=== PATIENT | male | born 1995 | race Caucasian/White ===

== ENCOUNTER 2022-12-14 22:52 | Emergency (ER) | payer OTHER ==
[2022-12-14 23:13] VITALS: BP 142/83
--- NOTE | 2022-12-14 23:40 | ED Physician Documentation ---
History of Present Illness - Stated complaint Stated Complaint: MALE - Chief complaint Chief Complaint: General - History obtained from History obtained from: Patient - Additonal information Additional information: 27yM , previously healthy, p/w R testicular pain sudden onset around 7 or 8pm this evening. He googled his symptoms and became concerned he had testicular torsion. patient states he may have squeezed the testicle and "cannot get an erection". No urinary sx. denies penile discharge, rash, or prior history of injury, infection or other medical issues with the genitals. Review of Systems : reports: Testicular pain. denies: Dysuria, Hematuria PD PAST MEDICAL HISTORY - Present Medications Home Medications: Ambulatory Orders Medication Instructions Recorded Confirmed No Known Home Medications 12/14/22 12/14/22 - Allergies Allergies/Adverse Reactions: Allergies Allergy/AdvReac Type Severity Reaction Status Date / Time No Known Drug Allergies Allergy Verified 12/14/22 23:02 PD ED PE NORMAL - Vitals Vital signs reviewed: Yes - General General: Alert and oriented X 3, No acute distress, Well developed/nourished - Male Male : Form Drafter present (AIRAM Mcelroy), Other (BL testicles with normal lie and BL cremaster reflex intact. mild discomfort on examination of R testicle. L testicle nontender. External genitalia otherwise normal.) - Derm Derm: Normal color, Warm and dry Results - Vitals Vitals: Vital Signs - 24 hr 12/14/22 12/14/22 22:55 22:59 Temperature 37.1 C Heart Rate 68 68 Respiratory 14 14 Rate Blood Pressure 142/83 H 142/83 H O2 Saturation 97 97 Oxygen O2 Source Room air PD Medical Decision Making - ED course ED course: 27yM presents for testicular evaluation after experiencing sudden onset R testicle pain this evening. BL cremaster intact. normal testicular lie without evidence of discoloration or swelling. plan for testicular ultrasound and discharge pending results. patient declining pain medication.
--- NOTE | 2022-12-15 01:04 | Ultrasound Report ---
PROCEDURE: Testicle w/Doppler INDICATIONS: R testicle pain sudden around 8pm TECHNIQUE: Real-time scanning was performed of the scrotum and testicles, with image documentation. Color and p ulse Doppler interrogation was performed of both testicles. COMPARISON: None. FINDINGS: Right: Testicle measures 4.8 x 2.6 x 2.4 cm and appears mildly heterogeneous in echotexture. Epidid ymis is normal in overall size and morphology. No varicoceles. There is a minimal hydrocele. Overlyi ng scrotal skin is normal in thickness. Left: Testicle measures 4.9 x 2.1 x 3 cm and appears mildly heterogeneous in echotexture. Epididymi s is normal in overall size and morphology. There is a small epididymal head cyst or spermatocele me asuring up to 0.7 cm. No hydrocele or varicoceles. Overlying scrotal skin is normal in thickness. IMPRESSION: 1. No definite evidence of testicular torsion. 2. Small epididymal head cyst or spermatocele. Reviewed by: Damir Howard MD on 12/15/2022 1:13 AM PST Approved by: Damir Howard MD on 12/15/2022 1:13 AM PST Station ID: [id number]
== END 2022-12-15 00:10 | disposition home or self-care (01) ==
LOC: ED 22:52
DX: N50.811 Right testicular pain (principal)
CPT/HCPCS: 93975; 99282; 99284